=== PATIENT | male | born 1990 | race Caucasian/White ===

== ENCOUNTER 2024-05-05 09:22 | Inpatient (IN) | payer MEDICAID, SELFPAY ==
[2024-05-05] VITALS (7 sets, daily range): BP systolic 120–154; BP diastolic 70–97; PULSE 64–124; RESP 16–20; TEMP 36.7–37; O2SAT 89–100; BMI 21.6
--- NOTE | 2024-05-05 | XR_ITS ---
Examination: MRI brain without intravenous contrast. Date and time of exam: May 05, 2024 1602 hrs. Indications: Onset seizure today, seizures 2 months ago Technique: Multiple axial and sagittal images of the brain obtained. Siemens high-resolution 1.5 Sarah short bore scanners utilized. Sagittal sections, T1-weighted, TR 500, TE 14, are performed. Axial sections proton-density and T2-weighted have been obtained. Inversion recovery axial images, TR 9, 260, TE 111, TI 2500. Diffusion weighted images, axial sections, TR 4800, TE 128, B value 1000 Axial sections, ADC map, TR 4800, TE 128 Findings: Enlargement of the sella turcica is not present. The optic chiasm and infundibular are not remarkable. Prepontine and interpeduncular cisterns are not enlarged. There is no localized enlargement of the medulla or chapin. Fourth ventricle and cerebellar tonsils appear normal in position. No subacute area of hemorrhage density is seen. Mass in the cerebellopontine angle region is not evident. Globes symmetrical. Orbital musculature including medial lateral rectus muscles do not exhibit abnormality. Diffusion-weighted images demonstrate no focus of restricted diffusion. Increased white matter signal not seen Mass effect upon the ventricular system is not identified. Impression: Negative for acute hemorrhage, mass effect or midline shift No acute infarct Significant chronic ethmoid maxillary antral sinusitis No MR findings diagnostic for demyelinating disease
--- NOTE | 2024-05-05 09:51 | PC.NURSE ---
PT STATES THAT HE DID NOT HAVE A SEIZURE, THIS RN THEN ASKED WHAT HE THOUGHT HE WAS HERE FOR AND HE LOOKED AT HIS HANDS AND SAID I GUESS BECAUSE I HAVE A SWOLLEN HAND . THIS RN THEN ASKED IF HE KNEW THE MONTH AND YEAR, PT SAID HE FORGETS WHAT MONTH BUT WAS ABLE TO SAY 2024. PT APPEARS TO REMAIN IN POST-ICTAL PHASE. CALL NARINDER IN REACH.
--- NOTE | 2024-05-05 09:57 | EKG_ITS ---
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
--- NOTE | 2024-05-05 10:00 | XR_ITS ---
Examination: CT brain head without contrast. 2-D sagittal coronal reconstructions Date and time of exam:May 05, 2024 1047 hours Comparison August 12, 2021 INDICATIONS: Seizures with fall today CTDI: vol (mGy):47.3 DLP: (mGycm):995 Technique: Multiple CT axial sections of the brain have been obtained, 5 mm slice thickness. Contrast has not been administered. 2-D sagittal, coronal reconstructions have been obtained Low dose protocols were performed. One or more of the following dose reduction techniques were used; automated exposure control, adjustment of the mA and/or KV according to patient size, use of iterative reconstruction technique. Findings: No significant ventricular enlargement. Intra-axial or extra-axial hemorrhage density is not seen. No mass effect or midline shift Basal cisterns are not remarkable. Fourth ventricle is midline. Cranial vault intact. Impression: Negative for acute hemorrhage, mass effect or midline shift Consider elective brain MRI follow-up, pre and postcontrast, seizure protocol
--- NOTE | 2024-05-05 10:16 | EDNOTE_ITS ---
ED Seizures RME/HPI General Chief Complaint: Seizure Stated Complaint: SEIZURE Time Seen by Provider: 05/05/24 09:52 Arrival date/time: 05/05/24 09:22 RME / HPI RME / HPI Narrative: DR. LARRY MAIN ED EVALUATION: 33 year old male presents to the Emergency Department [facility] with complaint of a seizure 30 minutes prior to arrival that lasted 1 minute. He has history of x2 other seizures in the past but is not taking medications and has not followed-up with a neurologist; last seizure was a couple months ago and the previous to that another couple months before. He states today he was asleep in bed and seizure was witnessed by housemate. No trauma or injuries. He states he smokes marijuana and drinks regularly. Denies history of alcohol withdrawal. Related Data Previous Rx's ?Medication ?Instructions ?Recorded albuterol sulfate 90 mcg/actuation 1 inh inhalation QI D #1 ea 12/23/21 breath activated powder inhaler ibuprofen 800 mg tablet 800 mg PO TID PRN pain #30 t abs 12/14/22 naproxen 500 mg tablet (Naprosyn) 500 mg PO BID PRN pa in #30 tabs 12/19/23 Allergies Allergy/AdvReac Type Severity Reaction Status Date / Time clavulanic acid (From Allergy Severe Swelling Verified 12/14/22 14:49 Augmentin) of Lip/Tongue/Throat Review of Systems Review of Systems Systems Reviewed: All systems reviewed, normal except as documented Narrative Review of Systems: GEN: No fever, no chills, no weight loss EYES: No discharge, no visual changes, no pain HEENT: No ear pain, no congestion, no sore throat PULM: No shortness of breath, no cough, no congestion CV: No chest pain, no dyspnea on exertion, no palpitations GI: No nausea, no vomiting, no diarrhea, no pain, no constipation : No frequency, no urgency and no dysuria MUSC/SKEL: No joint pain, no back pain SKIN: No rash PSYCH: No hallucinations, no depression HEME/LYMPH: No easy bleeding or bruising tendencies NEURO: No weakness, no headache, + seizure (see HPI) Past Medical History Past Medical History RESPIRATORY: Positive Asthma Social History SMOKING STATUS: Former smoker SUBSTANCE USE: does not use ALCOHOL: Never ED Exam Narrative Physical exam: GENERAL APPEARANCE: alert and oriented x 4, well-developed, well-nourished, no acute distress VITALS: All vitals were reviewed and the pulse ox is 89% on room air, which is hypoxic according to my interpretation. HEENT: Normocephalic, atraumatic; pupils equal, round, reactive to light; EOMI; mucous membranes pink, moist; oropharynx clear NECK: Supple LUNGS: CTABL; no wheezes, no rales, no rhonchi HEART: Regular rate, regular rhythm; normal S1, S2; no murmurs ABDOMEN: non distended; normal BS; soft, no tenderness, no guarding, no rebound; no masses, no organomegaly, no hernia BACK: no CVA tenderness EXTREMITIES: atraumatic; no edema NEUROLOGIC: awake; alert and oriented x4; cranial nerves II-XII grossly intact; no focal sensory or motor deficits PSYCHIATRIC: appropriate mood and affect SKIN: warm, dry, normal color; no rashes Course Quality Measures none Orders Category Date Time Status [employer] NOW Care 05/05/24 09:57 Completed EKG (ED ONLY) *Do not use* NOW Care 05/05/24 09:57 Completed MRI Screening NOW Care 05/05/24 13:[address] head/brain wo con Stat Exams 05/05/24 10:00 Completed EKG (ED Only) Stat Exams 05/05/24 09:57 Draft MR head/brain wo con Stat Exams 05/05/24 Completed Alcohol, Blood Medical Stat Lab 05/05/24 11:13 Completed B-Type Natriuretic Peptide Stat Lab 05/05/24 10:20 Completed CBC Stat Lab 05/05/24 10:45 Completed Comprehensive Metabolic Panel Stat Lab 05/05/24 11:13 Completed Drug Screen,Urine Stat Lab 05/05/24 12:58 Completed Magnesium Stat Lab 05/05/24 11:13 Completed Troponin I Stat Lab 05/05/24 11:13 Completed UA, C/S IF [Urinalysis, C/S if Indicated] Stat Lab 05/05/24 12:58 Completed EEG Awake and Drowsy Stat RT 05/05/24 13:57 Taken Vital Signs Vital signs: Vital Signs Temperature 98.3 F 05/05/24 09:32 Pulse Rate 122 H 05/05/24 09:32 Respiratory Rate 18 05/05/24 09:32 Blood Pressure 154/97 H 05/05/24 09:32 Pulse Oximetry (%) 89 L 05/05/24 09:32 Oxygen Delivery Method Room Air 05/05/24 09:32 Procedures -ED EKG Interpretation #1: Date of EK05/05/24 Time of EK:13 Rate: 75 Interpretation: Interpreted by me Additional EKG comment: sinus rhythm, rate 75, Q waves in V1-V3, no acute ischemic changes Seizure MDM Narrative MDM Narrative:: I, Chayo Ruiz, jena scribing for and in the presence of Dr. Larry. Patient data External records reviewed:: [facility] previous records (Reviewed last ED visit dated 12/19/23, discharged with the following: Dental caries) and EMS form Clinical information provided by:: patient and EMS Social determinants that could affect healthcare access:: substance use (smokes marijuana and drinks occasionally, but not heavy and not daily) Patient has the following chronic illnesses:: seizures How is presenting disease/condition affected by chronic disease/condition?: caused by Evaluation data The following diagnostics were reviewed and interpreted by me:: lab results, radiology exam(s) and EKG tracing(s) (EKG#1: EKG at 1013 hours. Interpreted by me: sinus rhythm, rate 75, Q waves in V1-V3, no acute ischemic changes) Lab and/or radiology exams considered but not ordered:: none Interpretation Summary: Procedure(s): CT head/brain wo con Accession Number(s): [id number] cc: Domenic oCllado MD; NO PRIMARY/FAMILY,PHYSICIAN; Demi Larry MD~ Examination: CT brain head without contrast. 2-D sagittal coronal reconstructions Date and time of exam:May 05, 2024 1047 hours Comparison August 12, 2021 INDICATIONS: Seizures with fall today CTDI: vol (mGy):47.3 DLP: (mGycm):995 Technique: Multiple CT axial sections of the brain have been obtained, 5 mm slice thickness. Contrast has not been administered. 2-D sagittal, coronal reconstructions have been obtained Low dose protocols were performed. One or more of the following dose reduction techniques were used; automated exposure control, adjustment of the mA and/or KV according to patient size, use of iterative reconstruction technique. Findings: No significant ventricular enlargement. Intra-axial or extra-axial hemorrhage density is not seen. No mass effect or midline shift Basal cisterns are not remarkable. Fourth ventricle is midline. Cranial vault intact. Impression: Negative for acute hemorrhage, mass effect or midline shift Consider elective brain MRI follow-up, pre and postcontrast, seizure protocol Dictated By: Domenic Collado MD Medications / Prescriptions Medications or Prescriptions considered but not ordered:: none Medication administrations:: Medication Administration History Discontinued Medications Acetaminophen (Acetaminophen 325 Mg Tablet) 650 mg PO Q6H PRN PRN Reason: Fever >101.5 Stop: 06/04/24 14:32 Acetaminophen (Acetaminophen 325 Mg Tablet) 650 mg PO Q6H PRN PRN Reason: PAIN SCALE 1-3 (mild Stop: 06/04/24 14:32 Docusate Sodium (Docusate Sod 100 Mg Capsule) 100 mg PO QDAY PRN; Protocol PRN Reason: CONSTIPATION Stop: 06/04/24 14:32 Lorazepam (Lorazepam 2 Mg/Ml Vial) 2 mg IVP Q2HR HELEN Stop: 05/10/24 15:59 Lorazepam (Lorazepam 2 Mg/Ml Vial) 2 mg IVP Q2HR PRN PRN Reason: breakthrough seizure Stop: 05/10/24 15:59 Ondansetron HCl (Ondansetron Inj 2 Mg/Ml Inj 2 Ml) 4 mg IV Q6H PRN; Protocol PRN Reason: NAUSEA OR VOMITING Stop: 06/04/24 14:32 see above if any Consultations Consultation(s) initiated? (list below): Yes Consultation #1 (Physician, Specialty, Details): Discussed test HPI, PMHx, lab, radiology results and/or management with Dr. Dick. Will consult an admission to the hospitalist. Time: 13:54 Consultation #2 (Physician, Specialty, Details): Discussed test HPI, PMHx, lab, radiology results and/or management with resident working with hospitalist Dr. Burciaga. Will admit for further evaluation and greg luna. Accepts patient for admission. Time: 13:57 Diagnosis Seizure Differential Diagnosis: intractable seizure disorder, generalized seizure, epileptic seizure and status epilepticus Most likely diagnosis given after review of the tests above:: Seizures Admission Indicated Admission indicated?: indicated Admission Request Was there a request for admission?: Yes Admission Attestation Admission request attestation: Discussed case with [] from Hospitalist service regarding admission. Discussed patients ED course, exam findings, labs, and radiology results. The Hospitalist [agrees,declines] to accept the patient for admission. Disposition Plan Disposition Plan: Admit Discharge Plan Plan Patient Disposition: Admit Acute Care w/in Hospital Patient condition on transfer: Stable Problem List Clinical Impression: Seizures Patient/Caregiver Discharge Instructions Other Activity Instructions:: Please follow up with PCP within 1 week of discharge. Make an appointment tomorrow at [facility] to follow up with Dr. Dick in the afternoon: [address] [address] Obtain referral to neurology to follow up in [address] NOT drive or operate any heavy machinery.
[2024-05-05 11:20] LABS: Basophils % (Auto) 0 % (0-2.5); Eosinophils % (Auto) 0 % (0-10); Hematocrit 43.1 % (41.0-53.0); Hemoglobin 15.1 g/dL (13.5-16.0); Immature Granulocytes % (Auto) 1 % (0-0); Immature Granulocytes Auto 0.04 Thou/mm3 (0.00-0.00); Lymphocytes # (Auto) 0.4 Thou/mm3 (1.0-4.8); Lymphocytes % (Auto) 6 % (10-50); Mean Corpuscular Hemoglobin 32.1 pg (25.0-35.0); Mean Corpuscular Volume 92 fL (80-100); Monocytes # (Auto) 0.6 Thou/mm3 (0.0-0.8); Monocytes % (Auto) 9 % (0-12); Neutrophils # (Auto) 5.7 Thou/mm3 (1.8-7.7); Neutrophils % (Auto) 85 % (37-80); Nucleated Red Blood Cell % 0 /100 WBC (0); Platelet Count 177 Thou/mm3 (140-440); RDW Standard Deviation 41.6 fL (35.1-43.9); Red Blood Count 4.71 Miln/mm3 (4.50-5.90); White Blood Count 6.7 Thou/mm3 (3.8-10.6)
[2024-05-05 11:41] LABS: B-Type Natriuretic Peptide 33 pg/mL (0-100)
[2024-05-05 12:27] LABS: Alanine Aminotransferase 250 U/L (10-49); Albumin, Serum 4.6 gm/dL (3.5-5.0); Albumin/Globulin Ratio 1.6 (1.2-2.2); Alcohol, Blood Medical < 10.0 mg/dL (0-10.0); Alkaline Phosphatase 101 U/L (46-116); Anion Gap 9 (7-16); Aspartate Amino Transferase 419 U/L (0-34); BUN/Creatinine Ratio 13 Ratio (12-20); Bilirubin,Total 1.4 mg/dL (0.3-1.2); Blood Urea Nitrogen 13 mg/dL (9-23); Calcium 9.3 mg/dL (8.3-10.6); Calcium (Corrected) 9.3 mg/dL (8.5-10.1); Carbon Dioxide 30.9 mMol/L (20.0-31.0); Chloride 90 mMol/L (98-107); Estimated Creatinine Clearance 89.3 mL/min (>60); Globulin 2.8 gm/dL (2.3-3.5); Glucose 116 mg/dL (74-106); Magnesium 2.7 mg/dL (1.6-2.6); Osmolality,Calculated 261 (275-295); Potassium 4.6 mMol/L (3.4-5.1); Sodium 130 mMol/L (136-145); Total Protein 7.4 gm/dL (5.7-8.2); Troponin I < 0.002 ng/mL (0.0-0.045); eGFR > 60 See Note
[2024-05-05 13:07] LABS: Collection Type, Urine Clean Catch; RBC,Urine 0 /hpf (0-3); Squamous Epithelial Cell,Urine 0 /hpf (0-5)
[2024-05-05 13:19] LABS: Amphetamine/Methamp Scrn,U Negative (Negative); Barbiturate Screen,Urine Negative (Negative); Benzodiazepines Screen,Urine Negative (Negative); Benzoylecgonine Screen, Ur Negative (Negative); Fentanyl Screen,Urine Negative (Negative); Opiate Screen,Urine Negative (Negative); THC Screen,Urine Positive (Negative)
[2024-05-05 13:36] LABS: Amorphous Crystals,Urine Present (Absent); Bilirubin,Urine Negative (Negative); Blood,Urine Trace (Negative); Culture Indicated,Urine Not Indicated; Glucose, Urine Negative (Negative); Ketones,Urine 2+ (Negative); Leukocyte Esterase,Urine Negative (Negative); Nitrite,Urine Negative (Negative); PH,Urine 7.5 (5.0-7.0); Protein,Urine 2+ (Neg - Trace); Specific Gravity,Urine 1.029 (1.001-1.035); Triple Phosphate Crystal,Urine 2+; WBC,Urine 2 /hpf (0-5)
[2024-05-05 13:41] LABS: Clarity,Urine Turbid (Clear/Hazy); Color,Urine Amber (Lt Yel-Yel)
--- NOTE | 2024-05-05 14:55 | ESHP_ITS ---
<Statement entered by Nighat Menjivar MD - 05/05/24 16:57> I discussed with and supervised the direct marketing intern physician who took care of this patient. I personally saw and examined the patient and discussed the assessment and plan with the entire medicine team, including my attending Dr. Burciaga, I agree with the assessment and plan as documented below Patient seen and examined at bedside today. Labs and imaging reviewed. 33-year-old man with past medical history of asthma, substance abuse disorder who came to the ED with chief complaint of seizure. Patient stated that today while he was at home he passed out and he wake up when he was in the ED he stated that he has a seizure that was witnessed by his brother. The patient stated that this is the third seizure and the first one was 2 years ago and he has not been following any neurologist or any PCP. He denied any aura before the episodes, bowel incontinence or any other associated symptoms, like tongue biting. During this episode he endorsed that he hit his face otherwise does not endorse any other complaints at this moment.On arrival patient was hypertensive, tachycardic and hypoxic, labs were pertinent for T. bili 1.6 AST is 419 ALT 2 150. U tox positive for marijuana. Head CT was negative for acute hemorrhage midline shift or mass effect. Neurology was consulted, MRI and EEG was ordered and patient will be admitted for further treatment and management of new onset of seizures. Nighat Menjivar MD PGY-3 Disclaimer: Despite multiple revisions, due to the dictation software being used, the document bellow may not be free of grammatical errors including phonetic/typographic errors. However, this does not deter from our commitment to providing health care in the patient's best interest in mind. Documentation for date of: 05/05/24 HPI History of Present Illness Chief complaint: seizures History of present illness: 33-year-old male with past medical history of asthma was brought to the ED today due to seizure-like activity. According to the patient has had seizures in the past first one was 2 to 3 years ago and then a second 6 months ago after that patient has not had a seizure prior. However yesterday patient states he had a possible seizure because he did blackout while sitting down. Today patient was laying in the couch and decided to stand up to check on the TV and stated he had a seizure episode. Patient remembers hitting his face on his entertainment system and next thing he remembers is being on his side with foaming on his face. Patient denies tongue biting, urinary or bowel incontinence. Patient has not been around any sick contacts recently, has not traveled. Denies fever, chills, shortness of breath, chest pain, nausea, vomiting, abdominal pain. ED course: Vitals on arrival showed BP 154/97, heart rate 122, saturating 89% on room air. Labs significant for sodium 130, potassium 4.6, chloride 90, glucose 116, magnesium 2.7, total bilirubin 1.4, AST 419, ALT 250, urinalysis negative for bacterial infection, urine toxicology positive for THC. EKG shows normal sinus rhythm. Head CT was negative for acute hemorrhage, midline shift, mass effect PMHx: Asthma SxHx: Tonsillectomy, denies ectomy Social Hx: Former cigarette smoker quit 6 months ago, current THC smoker denies any other drug use FHx:unknown Review of Systems Review of Systems Systems Reviewed: All systems reviewed, normal except as documented Narrative Review of Systems: Narrative ROS GENERAL: Denies fevers/chills or diaphoresis. HEENT: Denies headache or visual/hearing changes. Denies nasal discharge. NEURO: Denies unusual weakness or difficulty speaking. CARDIO: Denies chest pain or palpitations. PULM: Denies SOB, coughing, or wheezing. GI: Denies abdominal pain, N/V/C/D/reflux/gas, bright red blood per rectum or melena. Reports having BMs. URO: Denies burning/itching/pain/urinary changes. MSK/EXT/SKIN: Denies joint/skeletal/muscle pain, issues/changes in upper or lower extremities, itchiness, or superficial pain. PSYCH: Cooperative, pleasant mood & affect. The rest of the review of systems is otherwise negative. Exam Vital Signs Temp Pulse Resp BP Pulse Ox O2 Del Method O2 Flow Rate 98.5 F 77 18 140/83 H 95 Nasal Cannula 2 05/05/24 14:37 05/05/24 14:37 05/05/24 14:37 05/05/24 14:37 05/05/24 14:37 05/05/24 14:37 05/05/24 14:37 Narrative Exam Physical Exam GENERAL: NAD, AAOx3 HEENT: Moist mucosa. Eyes open, symmetrical, & clear, bruise on nose, edentulous CARDIO: Heart RRR, no obvious murmurs PULM: No noted coughing/dyspnea CTA B/L, no R/W/R GI: Abdomen soft, nondistended, no pain on palpation. BSx4 SKIN/MSK/EXT: No wounds/rashes/edema/amputations, no pain on palpation. Pedal pulses present B/L NEURO: AAOx3, no focal neuro deficits, able to move all 4 extremities Results: Labs 05/06/24 04:47 05/06/24 04:47 Labs: Short CBC 05/05/24 Range/Units 10:45 WBC 6.7 (3.8-10.6) Thou/mm3 Hgb 15.1 (13.5-16.0) g/dL Hct 43.1 (41.0-53.0) % Plt Count 177 (140-440) Thou/mm3 BMP 05/05/24 11:13 Sodium 130 L Potassium 4.6 Chloride 90 L Carbon Dioxide 30.9 BUN 13 Creatinine 1.0 Glucose 116 H Calcium 9.3 Cardiac Enzymes 05/05/24 Range/Units 11:13 Troponin I < 0.002 (0.0-0.045) ng/mL Liver Function 05/05/24 Range/Units 11:13 Total Bilirubin 1.4 H (0.3-1.2) mg/dL AST 419 H (0-34) U/L ALT 250 H (10-49) U/L Alkaline Phosphatase 101 (46-116) U/L Albumin 4.6 (3.5-5.0) gm/dL Urine 05/05/24 Range/Units 12:58 Urine Color [place]velina (Lt Yel-Yel) Urine Clarity Turbid A (Clear/Hazy) Urine pH 7.5 H (5.0-7.0) Ur Specific [place] 1.029 (1.001-1.035) Urine Protein 2+ A (Neg - Trace) Urine Glucose (UA) Negative (Negative) Quality Measures Quality Measures none Medications Home Medications and Allergies Allergies Allergy/AdvReac Type Severity Reaction Status Date / Time clavulanic acid (From Allergy Severe Swelling Verified 12/14/22 14:49 Augmentin) of Lip/Tongue/Throat Visit Medications Acetaminophen (Acetaminophen 325 Mg Tablet) 650 mg PO Q6H PRN PRN Reason: Fever >101.5 Stop: 06/04/24 14:32 Acetaminophen (Acetaminophen 325 Mg Tablet) 650 mg PO Q6H PRN PRN Reason: PAIN SCALE 1-3 (mild Stop: 06/04/24 14:32 Docusate Sodium (Docusate Sod 100 Mg Capsule) 100 mg PO QDAY PRN; Protocol PRN Reason: CONSTIPATION Stop: 06/04/24 14:32 Lorazepam (Lorazepam 2 Mg/Ml Vial) 2 mg IVP Q2HR PRN PRN Reason: breakthrough seizure Stop: 05/10/24 15:59 Ondansetron HCl (Ondansetron Inj 2 Mg/Ml Inj 2 Ml) 4 mg IV Q6H PRN; Protocol PRN Reason: NAUSEA OR VOMITING Stop: 06/04/24 14:32 Discontinued Medications Lorazepam (Lorazepam 2 Mg/Ml Vial) 2 mg IVP Q2HR HELEN Stop: 05/10/24 15:59 Assessment & Plan Plan 33-year-old male with past medical history of asthma was brought to the ED today due to seizure-like activity. According to the patient has had seizures in the past first one was 2 to 3 years ago and then a second 6 months ago after that patient has not had a seizure prior. However yesterday patient states he had a possible seizure because he did blackout while sitting down. Today patient was laying in the couch and decided to stand up to check on the TV and stated he had a seizure episode. Patient remembers hitting his face on his entertainment system and next thing he remembers is being on his side with foaming on his face. Patient has never seen a neurologist for the symptoms before. Patient denies tongue biting, urinary or bowel incontinence. Patient has not been around any sick contacts recently, has not traveled. Denies fever, chills, shortness of breath, chest pain, nausea, vomiting, abdominal pain. #New onset seizures According to the patient has had seizures in the past first one was 2 to 3 years ago and then a second 6 months ago after that patient has not had a seizure prior. However yesterday patient states he had a possible seizure because he did blackout while sitting down. Today patient was laying in the couch and decided to stand up to check on the TV and stated he had a seizure episode. Patient denies tongue biting, urinary or bowel incontinence Patient has never been to a neurologist for evaluation Head CT showed Negative for acute hemorrhage, mass effect or midline shift EKG with door showed normal sinus rhythm ED spoke to neurologist recommended no antiseizure medications until EEG is done glucose 152 ? Ativan 2 mg as needed for breakthrough seizures ? MRI brain ? EEG ? Neurology Dr. Dick consulted, appreciate recommendations ?Seizure precautions ? Aspiration precautions ? N.p.o. until swallow eval passed ? Speech evaluation #History of asthma Has had no recent asthma attacks He also has run out of medications Currently saturating 98% on room air #Substance use disorder Patient smokes marijuana every day Drinks alcohol every other day approximately 48 ounces plus or minus a shot ? Consider social security assessor referral Case discussed with my senior Dr. Menjivar PGY-[address] Gualberto Bravo MD PGY-1 Disposition: Telemetry Fluids: None Feeding: Regular diet after swallow evaluation pass Thrombo prophylaxis: SCDs Gastric Ulcer prophylaxis: none CODE STATUS: Full code Attending Provider Attestation/Addendum Gabriella Otero DO, attest that I was physically present for the condon portions of the service and evaluated the patient with the resident and I reviewed and discussed the case with the resident and agree with the resident's findings and plans of care as documented above Patient is a 33-year-old male with past medical history of asthma and chronic marijuana use who presented to the ED after suffering from a tonic-clonic seizure that was witnessed by his friend. Patient states that he was getting up from the couch when he collapsed and had a reportedly 5 to 10-minute seizure with impact through his entertainment center. Patient reports that he had previous seizures in the past but never sought medical treatment. He states his previous seizures had resolved with a cold shower. He endorses confusion after seizure episode, but denies any loss of bowel or bladder control. He denies any tongue biting as he is edentulous. Patient does have a scab over the bridge of his nose that is healing well after his fall. He denies any headache,, visual changes. He denies any aura prior to his seizures patient states that his first seizure started about 2 years ago. He denies any changes or new medications. He denies other recreational drug use. He drinks alcohol every other day. He denies episodes of alcohol withdrawal in the past. On evaluation in the ED, patient was noted to be mildly hyponatremic with sodium 130, glucose of 116, bili 1.4 ast 490 and alt 250. Patient was tachycardic on presentation. He has no focal neurological deficits on exam. Patient will be admitted to telemetry for further workup of seizures. Will hold off on antiepileptics at this time and order EEG and MRI. Neurology also consulted from ED.
[2024-05-05 15:49] LABS: Creatine Kinase 168 U/L (34-171)
--- NOTE | 2024-05-05 16:12 | PC.CC ---
Patient is a 33 year old male who presents to the Emergency Department for seizures. ARCHIVES [employer]IST student introduced self, role reason for visit. Limits of confidentiality were discussed. Patient appears to be alert and oriented to self, location and situation. Patient was pleasant and engaged in initial assessment. Patient confirmed information on demographics. Patient is currently unemployed and lives with his friend Santy. Patient stated his surrogate decision maker is his mother Yoli Cannon ([phone]). Patient does not currently have a primary care provider. Pharmacy of choice is [facility] on [address]. Patient is able to ambulate and complete ADLs independently. Upon discharge patient plans to return home. 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
--- NOTE | 2024-05-05 17:19 | PC.NURSE ---
TRANSFERRED PT UP TO FLOOR ON TELE W/O INCIDENT. RN AT BEDSIDE FOR TRANSFER OF CARE. THIS RN CALLED PTS CANDE US AT HIS REQUEST TO INFORM HER HE WAS MOVED TO THE FLOOR. THIS RN SPOKE W/MOM AND INFORMED HER AND GAVER HER HIS NEW ROOM NUM SHARON
--- NOTE | 2024-05-05 17:22 | PC.NURSE ---
THIS RN TRANSFERRED PT UP TO FLOOR CONNECTED TO TELE W/O INCIDENT. FLOOR RN AT BEDSIDE TO ASSUME CARE. PT ASKED THIS RN TO CALL HIS MOM TO INFORM HIM HE TRANSFERRED UPSTAIRS, THIS RN CALLED AND SPOKE W/MOM ABEBA INFORMED HER OF PTS TRANSFER AND GAVE HER PTS NEW ROOM NUMBER.
--- NOTE | 2024-05-05 18:16 | PC.NURSE ---
Diet ordered is Mechanically altered per patient request due teeth recently being pulled
[2024-05-06] VITALS (7 sets, daily range): BP systolic 108–137; BP diastolic 76–94; PULSE 60–88; RESP 16–19; TEMP 36.4–36.8; O2SAT 92–99; BMI 21.2
--- NOTE | 2024-05-06 | VVCONSULT_ITS ---
Telemedicine visit statement This visit was conducted with the use of interactive audio and video telecommunications system that permits real time communication between the patient and the provider. Patient's verbal consent for virtual visit was obtained on 05/06/24 at 0000. Meds Home Medications and Allergies Allergies Allergy/AdvReac Type Severity Reaction Status Date / Time clavulanic acid (From Allergy Severe Swelling Verified 12/14/22 14:49 Augmentin) of Lip/Tongue/Throat Virtual exam Vital Signs Temp Pulse Resp BP Pulse Ox O2 Del Method O2 Flow Rate 98.5 F 72 18 127/70 96 Nasal Cannula 1 05/05/24 20:00 05/05/24 20:00 05/05/24 20:00 05/05/24 20:00 05/05/24 20:00 05/05/24 20:00 05/05/24 20:00 Results Labs 05/05/24 10:45 05/05/24 11:13 Labs: Short CBC 05/05/24 Range/Units 10:45 WBC 6.7 (3.8-10.6) Thou/mm3 Hgb 15.1 (13.5-16.0) g/dL Hct 43.1 (41.0-53.0) % Plt Count 177 (140-440) Thou/mm3 BMP 05/05/24 11:13 Sodium 130 L Potassium 4.6 Chloride 90 L Carbon Dioxide 30.9 BUN 13 Creatinine 1.0 Glucose 116 H Calcium 9.3 Cardiac Enzymes 05/05/24 05/05/24 Range/Units 11:13 15:15 Total Creatine Kinase 168 (34-171) U/L Troponin I < 0.002 (0.0-0.045) ng/mL Liver Function 05/05/24 Range/Units 11:13 Total Bilirubin 1.4 H (0.3-1.2) mg/dL AST 419 H (0-34) U/L ALT 250 H (10-49) U/L Alkaline Phosphatase 101 (46-116) U/L Albumin 4.6 (3.5-5.0) gm/dL Urine 05/05/24 Range/Units 12:58 Urine Color Evelina (Lt Yel-Yel) Urine Clarity Turbid A (Clear/Hazy) Urine pH 7.5 H (5.0-7.0) Ur Specific [place] 1.029 (1.001-1.035) Urine Protein 2+ A (Neg - Trace) Urine Glucose (UA) Negative (Negative)
[2024-05-06 05:54] LABS: Basophils % (Auto) 1 % (0-2.5); Eosinophils # (Auto) 0.1 Thou/mm3 (0.0-0.5); Eosinophils % (Auto) 2 % (0-10); Hematocrit 44.3 % (41.0-53.0); Hemoglobin 15.5 g/dL (13.5-16.0); Immature Granulocytes % (Auto) 0 % (0-0); Immature Granulocytes Auto 0.02 Thou/mm3 (0.00-0.00); Lymphocytes # (Auto) 1.2 Thou/mm3 (1.0-4.8); Lymphocytes % (Auto) 18 % (10-50); Mean Corpuscular Hemoglobin 32.9 pg (25.0-35.0); Mean Corpuscular Volume 94 fL (80-100); Monocytes # (Auto) 0.7 Thou/mm3 (0.0-0.8); Monocytes % (Auto) 11 % (0-12); Neutrophils # (Auto) 4.5 Thou/mm3 (1.8-7.7); Neutrophils % (Auto) 68 % (37-80); Nucleated Red Blood Cell % 0 /100 WBC (0); Platelet Count 169 Thou/mm3 (140-440); RDW Standard Deviation 42.7 fL (35.1-43.9); Red Blood Count 4.71 Miln/mm3 (4.50-5.90); White Blood Count 6.6 Thou/mm3 (3.8-10.6)
[2024-05-06 06:40] LABS: Alanine Aminotransferase 206 U/L (10-49); Albumin, Serum 4.7 gm/dL (3.5-5.0); Albumin/Globulin Ratio 1.7 (1.2-2.2); Alkaline Phosphatase 101 U/L (46-116); Anion Gap 8 (7-16); Aspartate Amino Transferase 229 U/L (0-34); BUN/Creatinine Ratio 14 Ratio (12-20); Bilirubin,Total 1.6 mg/dL (0.3-1.2); Blood Urea Nitrogen 14 mg/dL (9-23); Calcium 9.9 mg/dL (8.3-10.6); Calcium (Corrected) 9.9 mg/dL (8.5-10.1); Carbon Dioxide 31.6 mMol/L (20.0-31.0); Chloride 91 mMol/L (98-107); Estimated Creatinine Clearance 87.9 mL/min (>60); Globulin 2.8 gm/dL (2.3-3.5); Glucose 87 mg/dL (74-106); Magnesium 2.5 mg/dL (1.6-2.6); Osmolality,Calculated 262 (275-295); Potassium 4.9 mMol/L (3.4-5.1); Sodium 131 mMol/L (136-145); Thyroid Stimulating Hormone 2.48 uIU/mL (0.55-4.78); Total Protein 7.5 gm/dL (5.7-8.2); eGFR > 60 See Note
--- NOTE | 2024-05-06 07:23 | PD.RESPRO ---
Documentation for date of: 05/06/24 Subjective Subjective Interval history: Not overnight acute events This morning at the bedside, patient is AOx4, saturating well on room air, responding questions properly, tolerating p.o. denies any acute complaints at the moment, denied new episode of seizures. Pending EEG and neurology recommendation Exam Vital Signs Temp Pulse Resp BP Pulse Ox O2 Del Method O2 Flow Rate 98.0 F 67 17 108/76 92 L Nasal Cannula 1 05/06/24 04:00 05/06/24 04:00 05/06/24 04:00 05/06/24 04:00 05/06/24 04:00 05/06/24 04:00 05/06/24 04:00 Narrative Exam General: No acute distress, thin, alert, interactive. HEENT: NC/AT, PERRL, EOMI, Good conjugate gaze, moist mucous membranes, oropharynx clear, edentulous Neck: Supple, No masses, No adenopathy, carotid pulse 2+ bilaterally without bruits, No JVD, normal range of motion. Chest: Symmetrical, atraumatic, and with equal expansion , Nontender on palpation no deformity and no crepitus. CVS: S1 and S2 present, Regular rate and rhythm, No murmurs, rubs or gallops perceived during auscultation. Lungs: Normal respiratory effort, CTAB, no wheezing, rhonchi or rales perceived during auscultation, No intercostal or subcostal retraction. Abdomen : Soft, no tenderness to palpation, no guarding ,no rebound, +BS, no organomegaly. Extremities: No edema, warm well perfused, normal tone and ROM, strength and sensation intact, cap refill less than 2, +2 dp equal bilaterally, able to move all 4 extremities spontaneously. Skin: Bilateral upper extremity tattoos, no lesions, no erythema or jaundice noted Neuro: AOx4, cranial nerves II through XII intact, reflex symmetric and sensation normal, no focal neurologic deficits noted, GCS 15 Psych: Appropriate mood and affect. Objective Labs 05/06/24 04:47 05/06/24 04:47 Labs: Laboratory Results - last 24 hr 05/05/24 05/05/24 05/05/24 10:20 10:45 11:13 WBC 6.7 RBC 4.71 Hgb 15.1 Hct 43.1 MCV 92 MCH 32.1 MCHC 35.0 RDW Std Deviation 41.6 Plt Count 177 Neut % (Auto) 85 H Lymph % (Auto) 6 L Rains % (Auto) 9 Eos % (Auto) 0 Baso % (Auto) 0 Neut # (Auto) 5.7 Lymph # (Auto) 0.4 L Rains # (Auto) 0.6 Eos # (Auto) 0.0 Baso # (Auto) 0.0 Immature Gran # (Auto) 0.04 H Absolute Nucleated RBC 0.00 Immature Gran % 1 H Nucleated RBC % 0 Sodium 130 L Potassium 4.6 Chloride 90 L Carbon Dioxide 30.9 Anion Gap 9 BUN 13 Creatinine 1.0 Estim Creat Clear Calc 89.3 eGFR > 60 BUN/Creatinine Ratio 13 Glucose 116 H Calculated Osmolality 261 L Calcium 9.3 Corrected Calcium 9.3 Magnesium 2.7 H Total Bilirubin 1.4 H AST 419 H ALT 250 H Alkaline Phosphatase 101 Total Creatine Kinase Troponin I < 0.002 B-Natriuretic Peptide 33 Total Protein 7.4 Albumin 4.6 Globulin 2.8 Albumin/Globulin Ratio 1.6 TSH Ur Collection Type Urine Color Urine Clarity Urine pH Ur Specific [place] Urine Protein Urine Glucose (UA) Urine Ketones Urine Blood Urine Nitrite Urine Bilirubin Urine Urobilinogen (Auto) Ur Leukocyte Esterase Urine RBC Urine WBC Ur Squamous Epith Cells Triple Phos Crystals Amorphous Crystals Urine Bacteria Ur Culture Indicated? Urine Opiates Screen Urine Fentanyl Screen Ur Barbiturates Screen U Amphetamin/Meth Scrn U Benzodiazepines Scrn U Cocaine Metab Screen U Marijuana (THC) Screen Ethyl Alcohol < 10.0 05/05/24 05/05/24 05/06/24 12:58 15:15 04:47 WBC 6.6 RBC 4.71 Hgb 15.5 Hct 44.3 MCV 94 MCH 32.9 MCHC 35.0 RDW Std Deviation 42.7 Plt Count 169 Neut % (Auto) 68 Lymph % (Auto) 18 Rains % (Auto) 11 Eos % (Auto) 2 Baso % (Auto) 1 Neut # (Auto) 4.5 Lymph # (Auto) 1.2 Rains # (Auto) 0.7 Eos # (Auto) 0.1 Baso # (Auto) 0.0 Immature Gran # (Auto) 0.02 H Absolute Nucleated RBC 0.00 Immature Gran % 0 Nucleated RBC % 0 Sodium 131 L Potassium 4.9 Chloride 91 L Carbon Dioxide 31.6 H Anion Gap 8 BUN 14 Creatinine 1.0 Estim Creat Clear Calc 87.9 eGFR > 60 BUN/Creatinine Ratio 14 Glucose 87 Calculated Osmolality 262 L Calcium 9.9 Corrected Calcium 9.9 Magnesium 2.5 Total Bilirubin 1.6 H AST 229 H ALT 206 H Alkaline Phosphatase 101 Total Creatine Kinase 168 Troponin I B-Natriuretic Peptide Total Protein 7.5 Albumin 4.7 Globulin 2.8 Albumin/Globulin Ratio 1.7 TSH 2.48 Ur Collection Type Clean Catch Urine Color Evelina Urine Clarity Turbid A Urine pH 7.5 H Ur Specific [place] 1.029 Urine Protein 2+ A Urine Glucose (UA) Negative Urine Ketones 2+ A Urine Blood Trace Urine Nitrite Negative Urine Bilirubin Negative Urine Urobilinogen (Auto) 2.0 Ur Leukocyte Esterase Negative Urine RBC 0 Urine WBC 2 Ur Squamous Epith Cells 0 Triple Phos Crystals 2+ A Amorphous Crystals Present A Urine Bacteria None Ur Culture Indicated? Not Indicated Urine Opiates Screen Negative Urine Fentanyl Screen Negative Ur Barbiturates Screen Negative U Amphetamin/Meth Scrn Negative U Benzodiazepines Scrn Negative U Cocaine Metab Screen Negative U Marijuana (THC) Screen Positive A Ethyl Alcohol Quality Measures Quality Measures none Assessment & Plan Assessment Current Active Medications: Generic Name Dose Route Start Last Admin Trade Name Freq PRN Reason Stop Dose Admin Acetaminophen 650 mg 05/05/24 14:33 Acetaminophen 325 Mg Tablet PO 06/04/24 14:32 Q6H PRN Fever >101.5 Acetaminophen 650 mg 05/05/24 14:33 Acetaminophen 325 Mg Tablet PO 06/04/24 14:32 Q6H PRN PAIN SCALE 1-3 (mild Docusate Sodium 100 mg 05/05/24 14:33 Docusate Sod 100 Mg Capsule PO 06/04/24 14:32 QDAY PRN CONSTIPATION Protocol Lorazepam 2 mg 05/05/24 14:55 Lorazepam 2 Mg/Ml Vial IVP 05/10/24 15:59 Q2HR PRN breakthrough seizure Ondansetron HCl 4 mg 05/05/24 14:33 Ondansetron Inj 2 Mg/Ml Inj 2 Ml IV 06/04/24 14:32 Q6H PRN NAUSEA OR VOMITING Protocol Plan 33-year-old male with past medical history of asthma was brought to the ED today due to seizure-like activity. According to the patient has had seizures in the past first one was 2 to 3 years ago and then a second 6 months ago after that patient has not had a seizure prior. However yesterday patient states he had a possible seizure because he did blackout while sitting down. Today patient was laying in the couch and decided to stand up to check on the TV and stated he had a seizure episode. Patient remembers hitting his face on his entertainment system and next thing he remembers is being on his side with foaming on his face. Patient has never seen a neurologist for the symptoms before. Patient denies tongue biting, urinary or bowel incontinence. Patient has not been around any sick contacts recently, has not traveled. Denies fever, chills, shortness of breath, chest pain, nausea, vomiting, abdominal pain. #New onset seizures vs rule out seizure disorder According to the patient has had seizures in the past first one was 2 to 3 years ago and then a second 6 months ago after that patient has not had a seizure prior. However yesterday patient states he had a possible seizure because he did blackout while sitting down. Today patient was laying in the couch and decided to stand up to check on the TV and stated he had a seizure episode. Patient denies tongue biting, urinary or bowel incontinence Patient has never been to a neurologist for evaluation Head CT showed Negative for acute hemorrhage, mass effect or midline shift EKG with door showed normal sinus rhythm ED spoke to neurologist recommended no antiseizure medications until EEG is done glucose 152 Brain MRI Negative for acute hemorrhage, mass effect or midline shift, no acute infarct, significant chronic ethmoid maxillary antral sinusitis, no findings of diagnostic demyelinating disease Neurology is following up the case we greatly appreciate recommendation ? Ativan 2 mg as needed for breakthrough seizures ? Pending EEG ? Seizure precautions #History of asthma Has had no recent asthma attacks Not in acute exacerbation at this moment #Substance use disorder Patient smokes marijuana every day Drinks alcohol every other day approximately 48 ounces plus or minus a shot ? Consider child protective services social worker referral Disposition: Telemetry Fluids and Diet: Regular dysphagia 2 mechanically altered DVT prophylaxis: SCDs GI prophylaxis: None Bell: None CODE STATUS: Full code Patient discussed with my attending Dr Gualberto Menjivar MD PGY-3 Disclaimer: Despite multiple revisions, due to the dictation software being used, the document bellow may not be free of grammatical errors including phonetic/typographic errors. However, this does not deter from our commitment to providing health care in the patient's best interest in mind. Attending Provider Attestation/Addendum I, Gabriella Burciaga DO, attest that I was physically present for the condon portions of the service and evaluated the patient with the resident and I reviewed and discussed the case with the resident and agree with the resident's findings and plans of care as documented above Patient seen and evaluated this AM. He states he is feeling well. He denies any N/V/dizziness/ headache/ changes in vision. No acute events overnight. Pending EEG. MRI was done and shows no acute intracranial findings. Will f/u with neuro recs.
--- NOTE | 2024-05-06 17:45 | RESP.EEG ---
EEG COMPLETED AND READY TO BE READ
[2024-05-07] VITALS: BP 128/98; PULSE 57; PULSE 58; RESP 16; TEMP 36.3; O2SAT 95
[2024-05-07 04:00] VITALS: BP 122/74; PULSE 56; PULSE 63; RESP 16; TEMP 36.9; O2SAT 96
[2024-05-07 05:37] VITALS: BMI 21.2
[2024-05-07 06:11] LABS: Basophils % (Auto) 1 % (0-2.5); Eosinophils # (Auto) 0.3 Thou/mm3 (0.0-0.5); Eosinophils % (Auto) 6 % (0-10); Hematocrit 43.9 % (41.0-53.0); Hemoglobin 15.6 g/dL (13.5-16.0); Immature Granulocytes % (Auto) 0 % (0-0); Immature Granulocytes Auto 0.01 Thou/mm3 (0.00-0.00); Lymphocytes # (Auto) 1.2 Thou/mm3 (1.0-4.8); Lymphocytes % (Auto) 22 % (10-50); Mean Corpuscular HGB Conc 35.5 g/dl (31.0-37.0); Mean Corpuscular Hemoglobin 32.8 pg (25.0-35.0); Mean Corpuscular Volume 92 fL (80-100); Monocytes # (Auto) 0.7 Thou/mm3 (0.0-0.8); Monocytes % (Auto) 12 % (0-12); Neutrophils # (Auto) 3.2 Thou/mm3 (1.8-7.7); Neutrophils % (Auto) 59 % (37-80); Nucleated Red Blood Cell % 0 /100 WBC (0); Platelet Count 154 Thou/mm3 (140-440); RDW Standard Deviation 40.3 fL (35.1-43.9); Red Blood Count 4.76 Miln/mm3 (4.50-5.90); White Blood Count 5.5 Thou/mm3 (3.8-10.6)
[2024-05-07 06:33] LABS: Alanine Aminotransferase 185 U/L (10-49); Albumin, Serum 4.6 gm/dL (3.5-5.0); Albumin/Globulin Ratio 1.6 (1.2-2.2); Alkaline Phosphatase 94 U/L (46-116); Anion Gap 9 (7-16); Aspartate Amino Transferase 179 U/L (0-34); BUN/Creatinine Ratio 14 Ratio (12-20); Bilirubin,Total 1.9 mg/dL (0.3-1.2); Blood Urea Nitrogen 13 mg/dL (9-23); Chloride 94 mMol/L (98-107); Creatinine (Component) 0.9 mg/dL (0.6-1.3); Estimated Creatinine Clearance 97.7 mL/min (>60); Globulin 2.8 gm/dL (2.3-3.5); Glucose 98 mg/dL (74-106); Magnesium 2.4 mg/dL (1.6-2.6); Osmolality,Calculated 264 (275-295); Potassium 4.4 mMol/L (3.4-5.1); Sodium 132 mMol/L (136-145); Total Protein 7.4 gm/dL (5.7-8.2); eGFR > 60 See Note
[2024-05-07 08:00] VITALS: BP 125/74; PULSE 57; PULSE 62; RESP 18; TEMP 36.6; O2SAT 95
--- NOTE | 2024-05-07 09:52 | PC.NURSE ---
Per Dr. Burciaga No need for PT eval. Walk pt. and if steady pt. may be discharged now. Dr. Burciaga aware RN walked pt. and pt. exhibited safe ambulation.
[2024-05-07 10:15] VITALS: BP 122/72; PULSE 65; RESP 18; TEMP 36.6; O2SAT 95
--- NOTE | 2024-05-07 11:46 | ESDS_ITS ---
<Statement entered by Gabriella Burciaga DO - 05/07/24 17:27> I, Gabriella Burciaga DO, attest that I was physically present for the condon portions of the service and evaluated the patient with the resident and I reviewed and discussed the case with the resident and agree with the resident's findings and plans of care as documented above Planned Discharge Date 05/07/24 DS: Providers Provider Date of admission: 05/05/24 14:33 Primary care physician: Physician No Primary/Family Admitting Provider: Gabriella Burciaga DO Attending Provider on Admission: Gabriella Burciaga DO Consults: 05/05/24 14:49 Consult to Neurology / Tele-Neurology Stat Comment: Consulting Provider: Scott Dick 05/05/24 14:50 Referral Speech Therapy Stat Comment: 05/07/24 07:32 Referral Physical Therapy Stat Comment: Physician Instructions: Instructions: For possible discharge. Attending Provider on DC: Gabriella Burciaga DO Discharging Provider: Eloy Barvo MD Anticipated date of discharge: 05/07/24 DS: Diagnosis Problem List Completed Was Problem List Reviewed/Reconciled?: Yes Hospital Course Hospital Course Hospital course: 33-year-old male with past medical history of asthma was brought to the ED today due to seizure-like activity. According to the patient has had seizures in the past first one was 2 to 3 years ago and then a second 6 months ago after that patient has not had a seizure prior. However yesterday patient states he had a possible seizure because he did blackout while sitting down. Today patient was laying in the couch and decided to stand up to check on the TV and stated he had a seizure episode. Patient remembers hitting his face on his entertainment system and next thing he remembers is being on his side with foaming on his face. During hospital stay patient was evaluated by in-house neurology Dr Dick. Patient was evaluated with EEG, head CT, MRI all which came back negative. Patient was neurologically evaluated every 4 hours no repeat seizure activity noted. At this time patient is medically stable for discharge. Follow up with PCP within 1 week of discharge. Follow up with neurologist Dr. Dick within 2 weeks of discharge. No driving or operating heavy machinery until cleared by neurology. Should any symptoms recur or worsen patient is instructed to return to the ED. Problem list: #New onset seizures vs rule out seizure disorder #History of asthma #Substance use disorder Case discussed with my attending Dr. Gualberto Bravo MD PGY-1 Status at Discharge Functional status at discharge: independent ambulation Overall status at discharge: patient is back to baseline Time Spent with Patient Time attestation: Total time spent providing and/or coordinating discharge services: Time spent: Greater than 30 minutes Exam Vital Signs Temp Pulse Resp BP Pulse Ox O2 Del Method O2 Flow Rate 98 F 65 18 122/72 95 Room Air 1 05/07/24 10:15 05/07/24 10:15 05/07/24 10:15 05/07/24 10:15 05/07/24 10:15 05/07/24 10:15 05/06/24 08:00 Narrative Exam Physical Exam GENERAL: NAD, AAOx3 HEENT: Moist mucosa. Eyes open, symmetrical, & clear CARDIO: Heart RRR, no obvious murmurs PULM: No noted coughing/dyspnea CTA B/L, no R/W/R GI: Abdomen soft, nondistended, no pain on palpation. BSx4 SKIN/MSK/EXT: No wounds/rashes/edema/amputations, no pain on palpation. Pedal pulses present B/L NEURO: AAOx3, no focal neuro deficits, able to move all 4 extremities Discharge Plan Plan Patient Disposition: HOME (Self Care) Patient condition on transfer: Stable Care Plan Goals: Follow up with PCP within 1 week of discharge Follow up with neurologist Dr. Dick within 2 weeks of discharge No driving or operating heavy machinery until cleared by neurology Should any symptoms recur or worsen patient is instructed to return to the ED. Prescriptions/Referrals Prescriptions/Med Rec: Continued albuterol sulfate 90 mcg/actuation aerosol powdr breath activated 1 inh inhalation QID Qty: 1 1RF Discontinued ibuprofen 800 mg tablet 800 mg PO TID PRN (Reason: pain) Qty: 30 0RF hydrocodone-acetaminophen 5-325 mg tablet 1 tab PO BID MDD 10 PRN (Reason: pain) Qty: 10 0RF hydrocodone-acetaminophen 5-325 mg tablet 1 tab PO TID MDD 3 PRN (Reason: pain) Qty: 10 0RF albuterol sulfate [ProAir HFA] 90 mcg/actuation HFA aerosol inhaler 2 inh inhalation Q6H PRN (Reason: shortness of breath or wheezing) Qty: 8.5 0RF acetaminophen-codeine 300-30 mg tablet 1 tab PO Q6H PRN (Reason: pain) Qty: 10 0RF No Action ibuprofen 800 mg tablet 800 mg PO TID PRN (Reason: pain) Qty: 30 0RF naproxen [Naprosyn] 500 mg tablet 500 mg PO BID PRN (Reason: pain) Qty: 30 0RF Referrals: No Primary/Family,Physician [Primary Care Provider] - Patient/Caregiver Discharge Instructions Other Discharge Activity Instructions:: Please follow up with PCP within 1 week of discharge. Make an appointment tomorrow at [facility] to follow up with Dr. Dick in the afternoon: [address] [address] Obtain referral to neurology to follow up in [address] or operate any heavy machinery. Education Materials: First Aid: Seizures, Seizures and Epilepsy, ED Seizure, Recurrent (Adult) Print Language: Pashto Stand Alone Forms: Eugenie Award Info., Patient Portal Info Letter Discharge Order Discharge Orders: Discharge (Routine); Ordered 05/07/24 Ordered By: Gabriella Burciaga Quality Discharge Quality Measures VTE prophylaxis
== END 2024-05-07 10:15 | disposition home or self-care (01) | DRG 53 ==
LOC: SERX 14:00 → SERHOLD 15:00 → S2NX 17:08
PROVIDERS: Student in an Organized Health Care Education/Training Program; Admitting Provider Internal Medicine; Emergency Provider Emergency Medicine; Visit Provider Internal Medicine
DX: G40.409 Other generalized epilepsy and epileptic syndromes, not intractable, without status epilepticus (principal); F12.90 Cannabis use, unspecified, uncomplicated; E87.1 Hypo-osmolality and hyponatremia; R00.0 Tachycardia, unspecified; J45.909 Unspecified asthma, uncomplicated; Z87.891 Personal history of nicotine dependence; Z79.51 Long term (current) use of inhaled steroids
CPT/HCPCS: 36415; 70450; 70551; 80053; 80307; 80320; 81001; 82550; 83735; 83880; 84443; 84484; 85025; 92610; 95816; G0480

== ENCOUNTER 2024-06-11 18:09 | Emergency (ER) | payer MEDICAID, SELFPAY ==
[2024-06-11 18:10] VITALS: BMI 19.9
[2024-06-11 18:30] VITALS: BP 137/83; PULSE 113; RESP 18; TEMP 36.7; O2SAT 95
--- NOTE | 2024-06-11 18:35 | XR_ITS ---
Examination: Foot, left, 3 views Technique: AP, oblique, lateral views foot, 3 views Date and time of exam: June 11, 2024 1920 hours INDICATIONS: Injured the foot yesterday, foot pain. FINDINGS: Comminuted fractures proximal phalanx second digit without significant displacement No foreign bodies IMPRESSION: Comminuted fractures proximal phalanx third digit without significant displacement
--- NOTE | 2024-06-11 18:36 | PD.EDRME ---
Rapid Medical Screening Exam RME Arrival date/time: 06/11/24 18:09 33 year old male present to ED for c/o of foot injury I have greeted and performed a focused initial assessment of this patient. A comprehensive ED assessment and evaluation of the patient, analysis of all test results, and completion of the medical decision making process will be conducted by additional ED providers. Chief Complaint: Extremity Injury, Lower Time Seen by Provider: 06/11/24 18:13 Vital signs: Vital Signs Temperature 98.0 F 06/11/24 18:30 Pulse Rate 113 H 06/11/24 18:30 Respiratory Rate 18 06/11/24 18:30 Blood Pressure 137/83 H 06/11/24 18:30 Pulse Oximetry (%) 95 06/11/24 18:30 Oxygen Delivery Method Room Air 06/11/24 18:30
--- NOTE | 2024-06-11 19:11 | EDNOTE_ITS ---
Lower Extremity Injury RME/HPI General Chief Complaint: Extremity Injury, Lower Stated Complaint: L) ANKLE/2ND TOE INJURED FROM KICKING ROCK Time Seen by Provider: 06/11/24 18:13 Arrival date/time: 06/11/24 18:09 33-year-old male presents to the ED with a complaint of left second toe pain secondary to an injury he sustained yesterday. He states he was up in [facility] and was barefooted when he was walking and his left toes had a rock. He denies any previous injury. He came home today and was working and wearing his work boots. When he removed the work boots he noticed significant bruising and swelling of the left second toe and foot. He denies any other injuries. Mode of arrival: wheelchair Limitations: no limitations RME / HPI RME / HPI Narrative: 06/11/24 18:09 33 year old male present to ED for c/o of foot injury I have greeted and performed a focused initial assessment of this patient. A comprehensive ED assessment and evaluation of the patient, analysis of all test results, and completion of the medical decision making process will be conducted by additional ED providers. Related Data Previous Rx's ?Medication ?Instructions ?Recorded albuterol sulfate 90 mcg/actuation 1 inh inhalation QI D #1 ea 12/23/21 breath activated powder inhaler ibuprofen 800 mg tablet 800 mg PO TID PRN pain #30 t abs 12/14/22 naproxen 500 mg tablet (Naprosyn) 500 mg PO BID PRN pa in #30 tabs 12/19/23 meloxicam 15 mg tablet 15 mg PO QDAY #10 tabs 06/11 Allergies Allergy/AdvReac Type Severity Reaction Status Date / Time clavulanic acid (From Allergy Severe Swelling Verified 06/11/24 18:13 Augmentin) of Lip/Tongue/Throat Review of Systems Review of Systems Systems Reviewed: All systems reviewed, normal except as documented Past Medical History Past Medical History CARDIAC: Negative Congestive Heart Failure RESPIRATORY: Positive Asthma; Negative Chronic Obstructive Pulmonary Disease (COPD) GENITOURINARY: Negative Renal Disease ENDOCRINE: Negative Diabetes Mellitus Type 1 or Diabetes Mellitus Type 2 Social History SMOKING STATUS: Never smoker SUBSTANCE USE: does not use ED Exam Narrative Physical exam: Exam reveals left midfoot and distal swelling as well as ecchymosis to the left second and third toes. There is no tenderness to the first, third, fourth, or fifth toes or metatarsals phalangeal joints. There is tenderness to the left second toe, proximal phalanx and MTP joint. Decreased sensory noted. Decreased range of motion secondary to pain. No other injuries noted. General Limitations: Present no limitations General appearance: Present alert and in no apparent distress Head Head exam: Present atraumatic and normal inspection Eye Eye exam: Present normal appearance; Absent scleral icterus or conjunctival injection ENT ENT exam: Present normal exam Neck Neck exam: Present normal inspection Chest Chest inspection: Present normal inspection Respiratory Respiratory exam: Absent respiratory distress Cardiovascular Cardiovascular exam: Present regular rate and normal rhythm Abdominal Exam Abdominal exam: Absent distention Extremities Exam Extremities exam: Present other (As noted above) Back Exam Back exam: Present full ROM Neurological Exam Neurological exam: Present alert and oriented X3 Psychiatric Psychiatric exam: Present normal affect and normal mood Skin Skin exam: Present warm, dry, intact and normal color Course Course Course Narrative: 33-year-old male presents to the ED with a complaint of left second toe pain secondary to an injury he sustained yesterday. He states he was up in [place] and was barefooted when he was walking and his left toes had a rock. He denies any previous injury. He came home today and was working and wearing his work boots. When he removed the work boots he noticed significant bruising and swelling of the left second toe and foot. He denies any other injuries. Exam reveals left midfoot and distal swelling as well as ecchymosis to the left second and third toes. There is no tenderness to the first, third, fourth, or fifth toes or metatarsals phalangeal joints. There is tenderness to the left second toe, proximal phalanx and MTP joint. Decreased sensory noted. Decreased range of motion secondary to pain. No other injuries noted. XR Foot Left: FINDINGS: Comminuted fractures proximal phalanx second digit without significant. displacement. No foreign bodies. IMPRESSION: Comminuted fractures proximal phalanx third digit without significant .displacement Quality Measures none Orders Category Date Time Status Miscellaneous Nursing Order NOW Care 06/11/24 20:19 Completed XR foot comp LT min 3V Stat Exams 06/11/24 18:35 Completed Ketorolac Inj [Toradol Inj] Med 06/11/24 20:16 Discontinued 30 mg IM X1 ONE Vital Signs Vital signs: Vital Signs Temperature 98.0 F 06/11/24 18:30 Pulse Rate 113 H 06/11/24 18:30 Respiratory Rate 18 06/11/24 18:30 Blood Pressure 137/83 H 06/11/24 18:30 Pulse Oximetry (%) 95 06/11/24 18:30 Oxygen Delivery Method Room Air 06/11/24 18:30 Extremity Injury, Lower MDM Narrative MDM Narrative:: 33-year-old male presents to the ED with a complaint of left second toe pain secondary to an injury he sustained yesterday. He states he was up in [place] and was barefooted when he was walking and his left toes had a rock. He denies any previous injury. He came home today and was working and wearing his work boots. When he removed the work boots he noticed significant bruising and swelling of the left second toe and foot. He denies any other injuries. Exam reveals left midfoot and distal swelling as well as ecchymosis to the left second and third toes. There is no tenderness to the first, third, fourth, or fifth toes or metatarsals phalangeal joints. There is tenderness to the left second toe, proximal phalanx and MTP joint. Decreased sensory noted. Decreased range of motion secondary to pain. No other injuries noted. XR Foot Left: FINDINGS: Comminuted fractures proximal phalanx second digit without significant. displacement. No foreign bodies. IMPRESSION: Comminuted fractures proximal phalanx third digit without significant .displacement Patient data External records reviewed:: None Clinical information provided by:: patient Social determinants that could affect healthcare access:: none Patient has the following chronic illnesses:: Seizures How is presenting disease/condition affected by chronic disease/condition?: uneffected by Evaluation data The following diagnostics were reviewed and interpreted by me:: radiology exam(s) Lab and/or radiology exams considered but not ordered:: N/A Interpretation Summary: XR Foot Left: FINDINGS: Comminuted fractures proximal phalanx second digit without significant. displacement. No foreign bodies. IMPRESSION: Comminuted fractures proximal phalanx third digit without significant .displacement Medications / Prescriptions Medications or Prescriptions considered but not ordered:: N/A Medication administrations:: Medication Administration History Discontinued Medications Ketorolac Tromethamine (Ketorolac Inj 60 Mg/2 Ml Vial) 30 mg IM X1 ONE Stop: 06/11/24 20:17 Last Admin: 06/11/24 20:25 Dose: 30 mg Documented By: MAYNOR Toradol 30mg IM Consultations Consultation(s) initiated? (list below): No Diagnosis Extremity Injury, Lower Differential Diagnosis: ankle sprain and strain, fracture of toe and ankle fracture Most likely diagnosis given after review of the tests above:: Fractured Proximal Phalynx of right 3rd toe. Admission Indicated Admission indicated?: not indicated Explain why admission is indicated or not indicated:: Patient is stable for discharge. Admission Request Was there a request for admission?: No Disposition Plan Disposition Plan: Discharge Discharge Attestation Discharge Attestation: The patient and all family members were given an opportunity to ask questions and understood the discharge instructions. Discharge instructions specifically effects, indications for sooner follow up or return to the emergency department, and the expected course of current diagnosis. Patient condition: Stable Discharge Plan Plan Patient Disposition: HOME (Self Care) Discharge Disposition comment: Stable and Improved Prescriptions/Referrals Prescriptions/Med Rec: New meloxicam 15 mg tablet 15 mg PO QDAY Qty: 10 0RF No Action albuterol sulfate 90 mcg/actuation aerosol powdr breath activated 1 inh inhalation QID Qty: 1 1RF ibuprofen 800 mg tablet 800 mg PO TID PRN (Reason: pain) Qty: 30 0RF naproxen [Naprosyn] 500 mg tablet 500 mg PO BID PRN (Reason: pain) Qty: 30 0RF Referrals: No Primary/Family,Physician [Primary Care Provider] - In 1 week Problem List Clinical Impression: Fracture of toe Patient/Caregiver Discharge Instructions Education Materials: ED Fracture, Toe, Closed Additional Instructions: Follow-up with your primary care physician in 24 to 48 hours. Ice and elevate the left foot to reduce pain and swelling. Keep the toes taped for stabilization. Wear a hard soled shoe at all times. Print Language: Faroese Stand Alone Forms: Eugenie Award Info., Patient Portal Info Letter PA/CERTIFIED LEGAL SECRETARY SPECIALIST Supervising Physician PA/JULIOCESAR Supervising Physician: Dr. PERSAUD
[2024-06-11] MEDS: KETOROLAC INJ 60 MG/2 ML VIAL 30 MG IM (20:25)
--- NOTE | 2024-06-11 21:37 | PRELIM_ITS ---
Radiographs of the left foot (03 Images). June 11, 2024 1920 hours Clinical History: Foot swelling/injury today Comparison: No prior study is available for comparison. Findings: There is an acute nondisplaced fracture of the shaft of the proximal phalanx of the 2nd digit. The other visualized bones are of normal configuration and density. The visualized joints are normal in configuration and alignment. The periarticular soft tissues are normal. Impression: Acute nondisplaced fracture of the shaft of the proximal phalanx of the 2nd digit. Discussion Details: Results Discussed With : Dr. Jama at 09:32 PM 06/11/2024 Report Electronically Signed By: Chaparrita Oscar 06/11/2024 9:36:42 PM [EST]
== END 2024-06-11 20:44 | disposition home or self-care (01) ==
PROVIDERS: Emergency Provider Emergency Medicine
DX: S92.512A Displaced fracture of proximal phalanx of left lesser toe(s), initial encounter for closed fracture (principal); W22.09XA Striking against other stationary object, initial encounter; Y93.01 Activity, walking, marching and hiking
CPT/HCPCS: 73630; 96372; 99283; J1885

== ENCOUNTER 2024-12-12 23:46 | Emergency (ER) | payer MEDICAID, SELFPAY ==
[2024-12-12 23:47] VITALS: BMI 18.9
[2024-12-12 23:56] VITALS: BP 139/97; PULSE 107; RESP 20; TEMP 36.9; O2SAT 97
--- NOTE | 2024-12-13 00:10 | EDNOTE_ITS ---
ED Asthma RME/HPI General Chief Complaint: Shortness of Breath/Dyspnea Stated Complaint: DYSPNEA HX OF ASTHMA Time Seen by Provider: 12/13/24 00:08 Arrival date/time: 12/12/24 23:46 34M with history of asthma presents to ED with several days of SOB and wheezing. Patient denies fevers/chills. Patient ran out of inhaler. Limitations: no limitations Related Data Previous Rx's ?Medication ?Instructions ?Recorded albuterol sulfate 90 mcg/actuation 1 inh inhalation QI D #1 ea 12/23/21 breath activated powder inhaler ibuprofen 800 mg tablet 800 mg PO TID PRN pain #30 t abs 12/14/22 naproxen 500 mg tablet (Naprosyn) 500 mg PO BID PRN pa in #30 tabs 12/19/23 meloxicam 15 mg tablet 15 mg PO QDAY #10 tabs 06/11 Allergies Allergy/AdvReac Type Severity Reaction Status Date / Time clavulanic acid (From Allergy Severe Swelling Verified 12/12/24 23:49 Augmentin) of Lip/Tongue/Throat Review of Systems Review of Systems Systems Reviewed: All systems reviewed, normal except as documented Cardiovascular Cardiovascular: Reports dyspnea Respiratory Respiratory: Reports as per HPI, Reports dyspnea and Reports wheezing Allergic/Immunologic Allergic/Immunologic: Reports wheezing Past Medical History Past Medical History CARDIAC: Negative Congestive Heart Failure RESPIRATORY: Positive Asthma; Negative Chronic Obstructive Pulmonary Disease (COPD) GENITOURINARY: Negative Renal Disease ENDOCRINE: Negative Diabetes Mellitus Type 1 or Diabetes Mellitus Type 2 Social History SMOKING STATUS: Never smoker SUBSTANCE USE: does not use ED Exam General Limitations: Present no limitations General appearance: Present alert and in no apparent distress Head Head exam: Present atraumatic Neck Neck exam: Present normal inspection, full ROM and trachea midline Chest Chest inspection: Present normal inspection and symmetric chest wall rise Respiratory Respiratory exam: Present wheezes Neurological Exam Neurological exam: Present alert and oriented X3 Psychiatric Psychiatric exam: Present normal affect and normal mood Skin Skin exam: Present warm, dry, intact and normal color Course Quality Measures none Orders Category Date Time Status Albuterol/Ipratr Rt Yandy [Duoneb Rt Yandy] Med 12/13/24 00:08 Once 6 ml INH X1 ONE Dexamethasone Inj [Decadron Inj] Med 12/13/24 00:08 Once 10 mg PO X1 ONE Vital Signs Vital signs: Vital Signs Temperature 98.4 F 12/12/24 23:56 Pulse Rate 107 H 12/12/24 23:56 Respiratory Rate 20 12/12/24 23:56 Blood Pressure 139/97 H 12/12/24 23:56 Pulse Oximetry (%) 97 12/12/24 23:56 Oxygen Delivery Method Room Air 12/12/24 23:56 Asthma MDM Narrative MDM Narrative:: 34M with history of asthma presents to ED with several days of SOB and wheezing. Patient denies fevers/chills. Patient ran out of inhaler. Physical exam reveals some wheezing in lungs. Patient is afebrile, calm, and alert. Patient eloped after meds. Patient data External records reviewed:: [facility] previous records Clinical information provided by:: patient Social determinants that could affect healthcare access:: none Patient has the following chronic illnesses:: asthma How is presenting disease/condition affected by chronic disease/condition?: exacerbated by Evaluation data The following diagnostics were reviewed and interpreted by me:: other (specify) (none) Lab and/or radiology exams considered but not ordered:: not ordered Interpretation Summary: n/a Medications / Prescriptions Medications or Prescriptions considered but not ordered:: ordered Medication administrations:: Medication Administration History Albuterol/Ipratropium (Albuterol/Ipratropium (Duoneb) Rt Yandy 3 Ml Nebu) 6 ml INH X1 ONE Stop: 12/13/24 00:09 Dexamethasone Sodium Phosphate (Dexamethasone Sod Phos Inj 10 Mg/Ml Vial) 10 mg PO X1 ONE Stop: 12/13/24 00:09 Consultations Consultation(s) initiated? (list below): No Diagnosis Differential diagnosis asthma: Acute exacerbation, Status asthmaticus, Acute asthmatic bronchitis, PE, Pneumonia, COPD exacerbation, Pulmonary edema systolic, Pulmonary edema dystolic, ARDS, Pneumothorax and Foreign body in trachea Most likely diagnosis given after review of the tests above:: asthma exacerbation Admission Indicated Admission indicated?: not indicated Admission Request Was there a request for admission?: No Disposition Plan Disposition Plan: other (specify) (eloped) Discharge Plan Plan Patient Disposition: Elopement Prescriptions/Referrals Prescriptions/Med Rec: No Action albuterol sulfate 90 mcg/actuation aerosol powdr breath activated 1 inh inhalation QID Qty: 1 1RF ibuprofen 800 mg tablet 800 mg PO TID PRN (Reason: pain) Qty: 30 0RF naproxen [Naprosyn] 500 mg tablet 500 mg PO BID PRN (Reason: pain) Qty: 30 0RF meloxicam 15 mg tablet 15 mg PO QDAY Qty: 10 0RF Referrals: No Primary/Family,Physician [Primary Care Provider] - In 1 week Problem List Clinical Impression: Asthma with exacerbation Patient/Caregiver Discharge Instructions Print Language: Greenlandic PA/SYSTEM OPERATION SUPERINTENDENT Supervising Physician PA/SYSTEM OPERATION SUPERINTENDENT Supervising Physician: Dr. Handy
[2024-12-13] MEDS: ALBUTEROL/IPRATROPIUM (Duoneb) RT SOL 3 ML NEBU 6 ML INH (00:24)
[2024-12-13 00:29] VITALS: PULSE 100; RESP 17; O2SAT 100
[2024-12-13] MEDS: DEXAMETHASONE SOD PHOS INJ 10 MG/ML VIAL PO (01:00)
--- NOTE | 2024-12-13 01:18 | PC.NURSE ---
called pt in er lobby and outside and no answer
== END 2024-12-13 02:44 | disposition left against medical advice (07) ==
PROVIDERS: Emergency Provider Emergency Medicine
DX: J45.901 Unspecified asthma with (acute) exacerbation (principal)
CPT/HCPCS: 94640; 99283; A9270; J1100